=== PATIENT | female | born 1995 | race Caucasian/White ===

== ENCOUNTER 2022-04-06 12:35 | Observation (INO) | payer OTHER ==
[~2022-04-06] VITALS: Ht 160 cm; Wt 93.9 kg
[2022-04-06] MEDS ORDERED: LACTATED RINGERS 500 ML IV SCH (13:30)
[2022-04-06] MEDS ORDERED: LACTATED RINGERS 1,000 ML IV SCH (13:30)
[2022-04-06] MEDS ORDERED: ONDANSETRON 4 MG/2 ML VIAL IVP PRN (13:35)
[2022-04-06 13:49] LABS: APPEARANCE,URINE CLEAR (CLEAR); BILIRUBIN,URINE NEGATIVE (NEGATIVE); BLOOD, URINE NEGATIVE (NEGATIVE); COLOR,URINE YELLOW (YELLOW); LEUKOCYTE ESTERASE ,URINE NEGATIVE (NEGATIVE); NITRITE, URINE NEGATIVE (NEGATIVE); UGLUCOSE 3+ (NEGATIVE)
[2022-04-06 14:15] LABS: ALBUMIN 2.1 g/dL (3.4-5.0); ANION GAP 19.2 (8-16); CARBON DIOXIDE 17.4 mmol/L (21-32); CREATININE 0.9 mg/dL (0.6-1.3); POTASSIUM 3.6 mmol/L (3.5-5.1); TOTAL BILIRUBIN 0.3 mg/dL (0.0-1.0)
[2022-04-06] MEDS ORDERED: DIPHENOXYLATE /ATROPINE 2.5 MG TAB PO SCH (14:30)
[2022-04-06 14:58] VITALS: BP 141/85
[2022-04-06] MEDS ORDERED: INSULIN LISPRO SLIDING SCALE 100 UNITS/ML VIAL SUBQ PRN (15:00)
[2022-04-06] MEDS ORDERED: PRETAB PO (15:07)
== END 2022-04-06 15:45 | disposition home or self-care (01) ==
LOC: MLD 12:35
PROVIDERS: ADMIT Obstetrics & Gynecology; ATTEND Obstetrics & Gynecology
DX: O62.9 Abnormality of forces of labor, unspecified (principal); O21.2 Late vomiting of pregnancy; O26.893 Other specified pregnancy related conditions, third trimester; R19.7 Diarrhea, unspecified; Z3A.30 30 weeks gestation of pregnancy
CPT/HCPCS: 36415; 80053; 81003; 96361; 96374; G0378; G0379; J1815; J2405; 59025